=== PATIENT | female | born 1985 | race Caucasian/White ===

== ENCOUNTER → 2018-06-09 16:27 | Outpatient (CLI) | payer OTHER, SELFPAY ==
--- NOTE | 2018-06-09 16:30 | CT_ITS ---
HISTORY: SINUSITIS, NATANAEL PROTOCOL TECHNIQUE: Helically acquired images were obtained of the paranasal sinuses. A radiation dose optimization technique was used for this scan. IV Contrast dosage and agent: None. COMPARISON: 08/02/2014 FINDINGS: The paranasal sinuses are adequately developed. Bilateral middle meatal antrostomies which remain patent. Chronic sinusitis with mild mucosal thickening of the maxillary sinuses superiorly. 1 cm retention cyst within the anterior floor of the left maxillary sinus. Left maxillary sinus overall shows improved aeration compared to previous. Left ethmoid anterior air cell sinusitis, unchanged. The frontal and sphenoid sinuses appear clear. The nasal septum shows no significant deformity. The mastoids and middle ear cavities appear clear. CT/Sinus/Facial Bone IMPRESSION: 1. Bilateral middle meatal antrostomies remain widely patent. 2. Bilateral maxillary and anterior left ethmoid chronic sinusitis with interval improved aeration of the left maxillary sinus. 3. No new disease or worsening of disease. Individualized dose optimization techniques were used for this CT. at 0453 Reported and signed by: Stuart Coon MD Electronically Signed: Stuart Coon, at 4:52 EST Tel , Service support ,
== END ==
LOC: CT 16:30
PROVIDERS: Referring Provider Otolaryngology; Visit Provider Otolaryngology
DX: J32.9 Chronic sinusitis, unspecified (principal)
CPT/HCPCS: 70486

== ENCOUNTER 2018-08-10 08:11 | Day surgery (SDC) | payer OTHER, SELFPAY ==
[2018-08-06 10:47] LABS: Hematocrit 48.1 % (37-47); Hemoglobin 15.8 g/dl (12.0-15.0); Mean Corp Hgb Conc 32.8 g/gl (32-36); Mean Corpuscular Hgb 30.1 pg (27.0-32.0); Mean Corpuscular Volume 91.6 fL (81-99); Mean Platelet Vol. 9.3 fl (6.2-12.0); Platelet Count 360 K/mm3 (150-450); RBC Distribution Width CV 12.8 % (11.6-14.6); RBC Distribution Width SD 42.6 fl (35.1-43.9); Red Blood Count 5.25 M/mm3 (4.2-5.4); Scan Indicated on CBC? Y/N NO
[2018-08-06 11:12] LABS: Anion Gap 7 (5-15); BUN 9 mg/dL (7-18); Calcium,Total 8.9 mg/dL (8.5-10.1); Chloride 107 mmol/L (98-107); Creatinine, Serum 0.75 mg/dL (0.55-1.02); EST Glomerular Filtration Rate 96 mL/min (>60); Est Glom Filt Rate - Afr Amer 116 mL/min (>60); Glucose 97 mg/dL (74-106); Potassium 4.1 mmol/L (3.5-5.1); Sodium Level 136 mmol/L (136-145)
[2018-08-10 08:29] VITALS: BP 137/80; PULSE 86; RESP 14; TEMP 37.2; O2SAT 97; BMI 35.7
[2018-08-10 08:36] LABS: Internal QC Validated? YES +Cl - CLEAR BKGD; Pregnancy, Urine Negative Negative
--- NOTE | 2018-08-10 10:00 | DCINST_ITS ---
You will use the following diet at home:: No restrictions Your food should be the consistency of: Regular Discharge Activity: May not drive while taking narcotic pain medications. Call your doctor if your incision/area has: Sudden Increased Bleeding Additional Dressing/Incision Instructions:: copious nasal saline spray/irrigations 6 times daily Allergies/Adverse Reactions: Allergies No Known Allergies Allergy (Verified 08/03/18 10:05) Medications to take at Discharge Albuterol IH (ProAir) [Proair Hfa (SP)Vent Pts] 1 - 2 puff INHALATION Q4H PRN PRN 08/03/18 Etonogestrel [Nexplanon] 68 mg SQ X1 08/03/18 Fluoxetine HCl 40 mg PO DAILY 08/03/18 Fluticasone/Salmeterol [Advair 500/50 Mcg Diskus] 1 puff INHALATION BID 08/03/18 Spironolactone [Aldactone] 50 mg PO DAILY 08/03/18 Primary Care Physician: Belinda Lee DO [Primary Care Provider] - Test Results: Test results from this visit will be discussed in further detail at your follow- up appointment, if applicable. Please Follow Up With: Gary Lara MD When: 1 week
[2018-08-10] MEDS: Oxymetazoline 0.05% 1 SPRAY SPRAY.BTL 15 SPRAY (10:15)
--- NOTE | 2018-08-10 10:15 | ETH_PTH ---
PATIENT: ROBERT BERGMAN LOC: [facility] [place] U#:[id number] AGE/SX: 32/F ROOM: RE08/10/[address]: Dr. Denton Lara MD : 1985 BED: DIS: 08/10/2018 SPEC #: [id number] RECD: 08/10/18 13:48 STATUS: EVELIA CATRACHITA #: [id number] ARIELLE: 08/10/18 10:[address]: Denton Lara DEPT: SURGICAL PATHOLOGY RECD BY: Andry Sepulveda ENTERED: 08/10/18 13:59 SP TYPE: ETH TISS OTHR DR: MD Dr. Belinda Severino DO Tissues: A - Ethmoid sinus, NOS B - Ethmoid sinus, NOS Procedures: Decalcification bone/plaque Surgery Specimen Level IV HEADER OPERATION: Revision, functional endoscopic sinus surgery PRE-OP DIAGNOSIS: Allergic rhinitis, acute recurrent pansinusitis, nasal congestion TISSUE SUBMITTED: A - Right ethmoid and maxillary sinus contents, B - Left ethmoid and maxillary sinus contents MICROSCOPIC DIAGNOSIS A. Right ethmoid and maxillary sinus contents: Fragments of respiratory mucosa with focal squamous metaplasia and mild chronic inflammation and bone. B. Left ethmoid and maxillary sinus contents: Fragments of respiratory mucosa including a piece of turbinate with mild chronic inflammation, focal squamous metaplasia and fragments of bone. ANIL:gino 08/13/18 MICROSCOPIC DESCRIPTION Slides are reviewed. GROSS DESCRIPTION A - Received in fixative is one container labeled with the patient's name and designated right ethmoid and maxillary sinus contents. The specimen consists of multiple fragments of hemorrhagic mucoid, frothy tissue that in aggregate measure 5 x 5 x 1 cm. A few fragments of bone are also noted. Door Closer Mechanic sections are submitted in three cassettes after decalcification. B - Received in fixative is one container labeled with the patient's name and designated left ethmoid and maxillary sinus contents. The specimen consists of multiple fragments of pink-red frothy tissue mixed with mucoid tissue and fragments of bone that in aggregate measure 3.5 x 3 x 1 cm. A fragment of turbinate is also noted. The entire specimen is submitted in three cassettes after decalcification. / ANIL:gino 08/10/18 TC:3 CPT: 45913 x2, 04566 x2
[2018-08-10] MEDS: Mupirocin Ointment 22gm Tube 1 APPLIC (11:27)
[2018-08-10 11:45] VITALS: BP 137/80; BP 94/82; PULSE 87; RESP 18; TEMP 37; O2SAT 97
[2018-08-10 12:00] VITALS: BP 137/80; BP 139/80; PULSE 77; RESP 18; O2SAT 94
[2018-08-10 12:15] VITALS: BP 134/76; BP 137/80; PULSE 66; RESP 18; O2SAT 94
[2018-08-10 12:30] VITALS: BP 130/81; BP 137/80; PULSE 73; RESP 18; TEMP 36.9; O2SAT 94
[2018-08-10 13:27] VITALS: BP 119/69; BP 137/80; PULSE 90; RESP 16; TEMP 37.2; O2SAT 94
--- NOTE | 2018-08-10 16:13 | OP.PCM_ITS ---
Problem List (1) Chronic pansinusitis Status: Chronic (2) Sinusitis with nasal polyps Status: Chronic Report of Operation Date of Procedure: 08/10/18 Pre-Operative Diagnosis: chronic pansinusitis. sinonasal polyposis Post-Operative Diagnosis: chronic pansinusitis. sinonasal polyposis Surgery/Procedure Performed:: 1. endoscopic total ethmoidectomy with sphenoidotomy with removal of tissue. 2. endoscopic maxillary antrostomy. 3. frontal sinus exploration. 4. CT guided navigation Type of Anesthesia:: General Description of Procedure: on the day of the procedure, after appropriate informed consent was obtained, the patient was brought to the operating room and placed in supine position on the operating table. she was placed under general endotracheal anesthesia by the anesthesiologist. the endotracheal tube was secured, the eyes were taped. the bilateral nasal cavities were decongested with oxymetazoline soaked pledgets. the left and right superior attachment of the middle turbinate was injected with lidocaine/epinephrine. the image guidance system was set up and confirmed for accuracy. the zero degree endoscope was used to evaluate the left nasal cavity. the previous antrostomy was inadequate and had several scar bands. the anterior/inferior portion of the middle turbinate was removed using turbinate scizzors. this area was cauterized. the antrostomy was widened with a back biter and the debrider. contents were evacuated. a total ethmoidectomy was performed with a combination of a curette and an upgoing blakesley. this was taken superiorly to the skull base and laterally to the lamina. a stankewicz maneuver was performed and no laminar defect was noted. the frontal recess was p robed and contents were evacuated. the natural sphenoid os was located and widened with the microdebrider. contents were evacuated. the area was irrigated with normal saline. pledgets were replaced. the zero degree endoscope was used to evaluate the left nasal cavity. the previous antrostomy was inadequate and had several scar bands. the anterior/inferior portion of the middle turbinate was removed using turbinate scizzors. this area was cauterized. the antrostomy was widened with a back biter and the debrider. contents were evacuated. a total ethmoidectomy was performed with a combination of a curette and an upgoing blakesley. this was taken superiorly to the skull base and laterally to the lamina. a stankewicz maneuver was performed and no laminar defect was noted. the frontal recess was probed and contents were evacuated. the natural sphenoid os was located and widened with the microdebrider. contents were evacuated. the area was irrigated with normal saline. pledgets were replaced. the patient was awoken from anesthesia and transferred to the PACU in stable condition.
== END 2018-08-10 13:31 | disposition home or self-care (01) ==
LOC: SDC 08:12 → AC 08:12
PROVIDERS: Anesthesiology; Referring Provider Otolaryngology; Visit Provider Otolaryngology
PROC: (CPT 31267; principal; 2018-08-10 09:45)
DX: J01.41 Acute recurrent pansinusitis (principal); J30.1 Allergic rhinitis due to pollen; J30.81 Allergic rhinitis due to animal (cat) (dog) hair and dander; R09.81 Nasal congestion; F41.9 Anxiety disorder, unspecified; F17.210 Nicotine dependence, cigarettes, uncomplicated
CPT/HCPCS: 31267; 31288; 36415; 80048; 81025; 85027; 88305; 88311; J7120; J2405